=== PATIENT | male | born 1990 | race Caucasian/White ===

== ENCOUNTER 2022-03-13 09:34 | Emergency (ER) | payer SELFPAY ==
[~2022-03-13] VITALS: Ht 174 cm; Wt 82.1 kg
[2022-03-13 10:12] VITALS: BP 140/88
[2022-03-13] MEDS ORDERED: KETOROLAC 30 MG/ML VIAL IM ONE (11:45)
--- NOTE | 2022-03-13 11:59 | NUR ---
in [facility] bibs for right wrist pain 6/10 after trip and fall last week. cspt intact. no swelling. no numbess/tingling. aao x4. resp even and nonlabored. vss. ambulatory
--- NOTE | 2022-03-13 12:07 | NUR ---
THUMB SPICA SPLINT WAS PLACED ON PTS RIGHT HAND AND WRAPPED WITH YI BANDAGE. PTS MCS TESTED AND FOUND INTACT.
[2022-03-13] MEDS ORDERED: ACET-8386 PO (12:24)
[2022-03-13] MEDS ORDERED: IBUP-2213 PO (12:24)
[2022-03-13 12:34] VITALS: BP 128/74
--- NOTE | 2022-03-13 12:35 | NUR ---
Patient discharged with v/s stable. Written and verbal after care instructions given and explained. Patient alert, oriented and verbalized understanding of instructions. Ambulatory with steady gait. All questions addressed prior to discharge. ID band removed. Patient advised to follow up with PMD. Rx of 1891 given. Patient educated on indication of medication including possible reaction and side effects. Opportunity to ask questions provided and answered. hourly sign language interpreter id [email or web address] [id number]
== END 2022-03-13 12:35 | disposition home or self-care (01) ==
LOC: MED 09:34
DX: M25.531 Pain in right wrist (principal)
CPT/HCPCS: 29125; 73110; 96372; 99283; J1885; Q0092

== ENCOUNTER 2022-06-16 13:26 | Emergency (ER) | payer SELFPAY ==
[~2022-06-16] VITALS: Ht 175.3 cm; Wt 77.1 kg
[~2022-06-16 13:26] MED LIST: ACET-8905 PO; IBUP-2213 PO
[2022-06-16 13:37] VITALS: BP 145/80
--- NOTE | 2022-06-16 14:00 | NUR ---
31/M WALKED IN C/O LEFT HAND PAIN S/P FALLING ON STAIRS AND LANDING ON HIS HANDS. PMH: DENIES
--- NOTE | 2022-06-16 14:00 | NUR ---
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 NO OPEN INJURY. AAO4, AMBULATORY, VITALS STABLE. PMH: JANEEN
[2022-06-16] MEDS ORDERED: HYDROcodone/APAP 5/325 MG 1 TAB TAB PO ONE (14:25)
[2022-06-16] MEDS ORDERED: MORPHINE SULFATE 4 MG/ML SYR IM ONE (15:50)
[2022-06-16] MEDS ORDERED: fentaNYL citrate 0.05 MG/ML VIAL IVP ONE ×2 (17:30→18:40)
--- NOTE | 2022-06-16 17:45 | NUR ---
IV ESTABLISHED TO RIGHT AC WITH 20G.
[2022-06-16] MEDS ORDERED: ACET-8905 PO (18:39)
[2022-06-16] MEDS ORDERED: IBUP-2213 PO (18:39)
--- NOTE | 2022-06-16 19:22 | NUR ---
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
[2022-06-16 19:25] VITALS: BP 132/77
--- NOTE | 2022-06-16 19:25 | NUR ---
Patient discharged with v/s stable. Written and verbal after care instructions given and explained. Patient alert, oriented and verbalized understanding of instructions. Ambulatory with steady gait. All questions addressed prior to discharge. ID band removed. Patient advised to follow up with PMD. Rx of NORCO AND IBUPROFEN given. Patient educated on indication of medication including possible reaction and side effects. Opportunity to ask questions provided and answered.
== END 2022-06-16 19:25 | disposition home or self-care (01) ==
LOC: MED 13:26
DX: S62.022A Displaced fracture of middle third of navicular [scaphoid] bone of left wrist, initial encounter for closed fracture (principal); S63.095A Other dislocation of left wrist and hand, initial encounter; X58.XXXA Exposure to other specified factors, initial encounter; Y93.89 Activity, other specified; Y92.89 Other specified places as the place of occurrence of the external cause; Y99.8 Other external cause status
CPT/HCPCS: 73130; 96372; 96374; 96376; 99285; J2270; J3010

== ENCOUNTER 2022-09-20 09:05 | Emergency (ER) | payer SELFPAY ==
[~2022-09-20] VITALS: Ht 167.6 cm; Wt 86.2 kg
[2022-09-20 09:40] VITALS: BP 137/91
--- NOTE | 2022-09-20 09:40 | NUR ---
USED FIELD MARKETING DIRECTOR HAITIAN [phone]
--- NOTE | 2022-09-20 10:02 | NUR ---
PT HERE TO GET SCREWS STICKING OUT REMOVED FROM LT HAND. SURGERY 3MTHS AGO. RT HAND PAIN X 3MTHS. SAFETY MAINTAINED.
[2022-09-20] MEDS ORDERED: ACETAMINOPHEN 325 MG TAB PO ONE (10:10)
--- NOTE | 2022-09-20 10:25 | NUR ---
RT HAND XRAY DONE.
[2022-09-20] MEDS ORDERED: IBUP-2213 PO (11:14)
--- NOTE | 2022-09-20 11:22 | NUR ---
1102 PT'S LEFT HAND WOUND CLEANED W/ NORMAL SALINE AND 4X4 GAUZE. PT'S WOUND WAS THEN COVERED W/ XEROFORM GAUZE AND WRAPPED LOOSELY W/ GAUZE ROLL.
== END 2022-09-20 11:27 | disposition home or self-care (01) ==
LOC: MED 09:05
DX: S62.001D Unspecified fracture of navicular [scaphoid] bone of right wrist, subsequent encounter for fracture with routine healing (principal); G89.29 Other chronic pain; M25.532 Pain in left wrist; M25.531 Pain in right wrist; Z46.89 Encounter for fitting and adjustment of other specified devices; Z79.1 Long term (current) use of non-steroidal anti-inflammatories (NSAID); Z79.891 Long term (current) use of opiate analgesic; X58.XXXD Exposure to other specified factors, subsequent encounter
CPT/HCPCS: 29125; 73110; 99283; Q0092